=== PATIENT | male | born 1995 | race American Indian/Alaskan Native ===

== ENCOUNTER 2017-10-14 11:03 | Emergency (ER) | payer BC ==
[2017-10-14 11:29] VITALS: BP 134/85
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
[2017-10-14 15:50] LABS: Basophils % (Auto) 0.7 % (0.0-1.8); Eosinophils # (Auto) 0.2 K/mm3 (0.0-0.4); Eosinophils % (Auto) 2.2 % (0.0-4.3); Hematocrit 43.9 % (35.5-45.6); Hemoglobin 14.3 gm/dl (11.8-15.2); Lymphocytes # (Auto) 3.2 K/mm3 (1.2-5.4); Lymphocytes % (Auto) 46.5 % (13.4-35.0); Mean Corpuscular HGB Conc 33 % (32-34); Mean Corpuscular Hemoglobin 29 pg (28-32); Mean Corpuscular Volume 89 fl (84-94); Monocytes # (Auto) 0.4 K/mm3 (0.0-0.8); Monocytes % (Auto) 5.2 % (0.0-7.3); Platelet Count 205 K/mm3 (140-440); Red Blood Count 4.93 M/mm3 (3.65-5.03); Red Cell Distribution Width 14.1 % (13.2-15.2)
[2017-10-14 15:57] LABS: Bilirubin,Urine NEG (Negative); Blood,Urine NEG (Negative); Color,Urine Yellow (Yellow); Mucus,Urine 1+ /HPF; Protein,Urine <15 mg/dL mg/dL (Negative)
[2017-10-14 16:11] LABS: BUN/Creatinine Ratio 10; Blood Urea Nitrogen 9 mg/dL (9-20); Calcium 9.5 mg/dL (8.4-10.2); Hemolysis Index 17
[2017-10-14] MEDS ORDERED: PERCOCET 5/325 PO ONE (16:12)
[2017-10-14] MEDS ORDERED: MOTRIN PO ONE (16:12)
--- NOTE | 2017-10-14 17:51 | Cat Scan Report ---
FINAL REPORT PROCEDURE: CT thoracic spine without contrast. TECHNIQUE: Computerized axial tomography of the thoracic spine was performed from C7 - L1 without contrast material. HISTORY: Patient fell, thoracic spine pain. COMPARISON: No prior studies are available for comparison. FINDINGS: The thoracic vertebrae have normal height and alignment. There are no fractures. There is no subluxation. The disc spaces are well maintained. The spinal canal is widely patent. The posterior elements appear intact. The paravertebral soft tissues are unremarkable. IMPRESSION: No significant abnormality.
--- NOTE | 2017-10-14 18:14 | Cat Scan Report ---
FINAL REPORT PROCEDURE: CT lumbar spine without contrast. TECHNIQUE: Computerized axial tomography of the lumbar spine was performed from T12 to the sacrum without contrast material. HISTORY: Patient fell, lower back pain. COMPARISON: No prior studies are available for comparison. FINDINGS: The lumbar vertebrae have normal height and alignment. There are no fractures. There is no spondylolysis. There is no spondylolisthesis. The disc spaces are well maintained. There are no definite disc protrusions. The spinal canal is widely patent. The posterior elements appear intact. The paravertebral soft tissues are unremarkable. IMPRESSION: Normal study.
== END 2017-10-14 19:08 | disposition home or self-care (01) ==
LOC: ED 11:03
DX: M54.42 Lumbago with sciatica, left side (principal); M54.16 Radiculopathy, lumbar region; R30.0 Dysuria; F17.200 Nicotine dependence, unspecified, uncomplicated; W19.XXXA Unspecified fall, initial encounter; Y93.89 Activity, other specified; Y99.8 Other external cause status; Y92.098 Other place in other non-institutional residence as the place of occurrence of the external cause
CPT/HCPCS: 36415; 72128; 72131; 80048; 81001; 85025; 87086